=== PATIENT | male | born 1985 | race Caucasian/White ===

== ENCOUNTER 2020-09-27 12:41 | Emergency (ER) | payer OTHER ==
[~2020-09-27] VITALS: Ht 188 cm; Wt 88.5 kg
[2020-09-27 12:50] VITALS: BP 136/86
[2020-09-27 12:58] VITALS: BP 136/86
[2020-09-27 13:35] VITALS: BP 132/79
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
== END 2020-09-27 13:35 | disposition home or self-care (01) ==
LOC: ER 12:41
DX: Z71.1 Person with feared health complaint in whom no diagnosis is made (principal); V43.52XA Car driver injured in collision with other type car in traffic accident, initial encounter; Y93.89 Activity, other specified; Y92.488 Other paved roadways as the place of occurrence of the external cause; Y99.8 Other external cause status
CPT/HCPCS: 99282